=== PATIENT | female | born 1935 | race Caucasian/White ===

== ENCOUNTER → 2016-08-26 | Outpatient (CLI) | payer OTHER ==
[~2016-08-26] MED LIST: IOPAMIDOL (ISOVUE-300) 100 ML BTL ONE
== END ==
LOC: CIMAGING 10:53
PROVIDERS: ATTEND Internal Medicine
DX: R59.1 Generalized enlarged lymph nodes (principal); K14.9 Disease of tongue, unspecified; I65.23 Occlusion and stenosis of bilateral carotid arteries; M50.30 Other cervical disc degeneration, unspecified cervical region; M48.02 Spinal stenosis, cervical region
CPT/HCPCS: 70491; Q9967

== ENCOUNTER → 2016-11-03 | Outpatient (CLI) | payer OTHER | LOC: CIMAGING 11:25 | PROVIDERS: ATTEND Internal Medicine | DX: R05 Cough (principal) | CPT/HCPCS: 71020-PO ==

== ENCOUNTER → 2017-11-10 | Outpatient (CLI) | payer OTHER | LOC: CIMAGING 15:03 | PROVIDERS: ATTEND Family Medicine | DX: J44.9 Chronic obstructive pulmonary disease, unspecified (principal) | CPT/HCPCS: 71046-PO ==

== ENCOUNTER → 2018-05-23 | Outpatient (CLI) | payer OTHER | LOC: CIMAGING 12:12 | PROVIDERS: ATTEND Internal Medicine | DX: M17.11 Unilateral primary osteoarthritis, right knee (principal) | CPT/HCPCS: 73562-PO ==